=== PATIENT | female | born 1990 | race Caucasian/White ===

== ENCOUNTER 2017-05-09 13:21 | Emergency (ER) | payer OTHER ==
[2017-05-09 13:34] VITALS: RESP 16
[2017-05-09 14:45] LABS: Basophils # (A) 0.1 k/uL (0-0.2); Basophils % (A) 1 %; Eosinophils # (A) 0.2 k/uL (0-0.7); Eosinophils % (A) 2 %; HCT 45.7 % (34.0-46.0); HGB 14.8 gm/dL (11.4-16.0); Lymphocytes # (A) 2.4 k/uL (1.0-4.8); Lymphocytes % (A) 28 %; MCH 28.3 pg (25.0-35.0); MCHC 32.4 g/dL (31.0-37.0); MCV 87.6 fL (80.0-100.0); Mean Platelet Volume 7.6; Monocytes # (A) 0.5 k/uL (0-1.0); Monocytes % (A) 6 %; Neutrophils # (A) 5.1 k/uL (1.3-7.7); Neutrophils % (A) 61 %; Platelet Count 351 k/uL (150-450); RBC 5.22 m/uL (3.80-5.40); RDW 13.4 % (11.5-15.5); WBC 8.5 k/uL (3.8-10.6)
[2017-05-09 14:46] LABS: Appearance,Urine Clear (Clear); Bilirubin,Urine Negative (Negative); Blood,Urine Negative (Negative); Color,Urine Yellow; Glucose,Urine (UA) Negative (Negative); Ketones,Urine Negative (Negative); Leukocyte Esterase,Urine Negative (Negative); Nitrite,Urine Negative (Negative); Protein,Urine Negative (Negative); Specific Gravity,Urine 1.019 (1.001-1.035); Urobilinogen,Urine <2.0 mg/dL (<2.0)
[2017-05-09 14:55] LABS: Anion Gap 10 mmol/L; Blood Urea Nitrogen 12 mg/dL (7-17); Calcium 10.3 mg/dL (8.4-10.2); Carbon Dioxide 26 mmol/L (22-30); Chloride 101 mmol/L (98-107); Glucose 80 mg/dL (74-99); Potassium 4.5 mmol/L (3.5-5.1); Sodium 137 mmol/L (137-145)
[2017-05-09 15:12] LABS: HCG,Quantitative Serum 1402.9 mIU/mL
--- NOTE | 2017-05-09 15:54 | US ---
EXAMINATION TYPE: US OB <= 14 wk fetus DATE OF EXAM: 05/09/2017 COMPARISON: NONE CLINICAL HISTORY: Pain. Bilateral hip pain x 2 days, 5, para 1, miscarriage 3, history of c-s ection and D&C EXAM PERFORMED: Transabdominal (TA) EXAM MEASUREMENTS: GESTATIONAL AGE / DATING Physician Established: Not established yet Dates by LMP: (4 weeks/5 days) EDC: 01/11/2018 Dates by First Scan: This is 1st scan Dates by Current Scan for: No IUP seen at this time MATERNAL ANATOMY Uterus: 9.5 x 5.0 x 5.8cm, anteverted Endometrium: 0.9cm Right Ovary: 2.7 x 1.8 x 1.8cm Left Ovary: 2.5 x 2.0 x 3.2cm, 2.2 x 1.4 x 1.5cm hypoechoic cystic area Post CDS / Adnexa: small amount of free fluid in posterior cul de sac Presence of free fluid: yes Presence of corpus luteal cyst: left ovary: 1.5 x 1.6 x 1.7cm hypoechoic area with peripheral vascula rity, possible corpus luteum Presence of subchorionic bleed: no GESTATION / SURVEY IUP: No IUP seen at this time Date of LMP: 04/06/2018 Beta HcG (if available): Not available at time of exam IMPRESSION: No intrauterine identified at this time. Endometrial canal appears normal 0.8 cm. Correlate for early versus spontaneous . Correlation with beta-hCG can be performed. Ectopic is not excluded this time.
--- NOTE | 2017-05-09 16:09 | ED ---
General Adult HPI - General Chief complaint: Abdominal Pain Stated complaint: early /cramping Time Seen by Provider: 05/09/17 13:39 Source: patient Mode of arrival: ambulatory Limitations: no limitations - History of Present Illness Initial comments: 26-year-old 031 presented for bilateral hip pain. She states that she recently had a positive test and hasn't followed up with her primary care physician or her CHEMICAL TESTER yet. She states that when she started having the pain this is similar to her previous spontaneous miscarriage and concerned her. She denies any vaginal bleeding or discharge or dysuria. There are no other symptoms other than the bilateral hip pain. She believes she is about 8 weeks but has not had confirmation of the at this time. - Related Data Home Medications Medication Instructions Recorded Confirmed No Known Home Medications [No 05/09/17 05/09/17 Known Home Medications] Allergies Allergy/AdvReac Type Severity Reaction Status Date / Time No Known Allergies Allergy Verified 05/09/17 13:51 Review of Systems ROS Statement: Those systems with pertinent positive or pertinent negative responses have been documented in the HPI. ROS Other: All systems not noted in ROS Statement are negative. Constitutional: Denies: fever, chills Eyes: Denies: eye pain, eye discharge ENT: Denies: ear pain, throat pain Respiratory: Denies: cough, dyspnea Cardiovascular: Denies: chest pain, palpitations Endocrine: Denies: fatigue, polydipsia, polyuria Gastrointestinal: Denies: abdominal pain, nausea, vomiting Genitourinary: Denies: urgency, dysuria Musculoskeletal: Reports: arthralgia (Bilateral hip pain). Denies: back pain, myalgia Skin: Denies: rash, lesions Neurological: Denies: headache, weakness Psychiatric: Denies: anxiety, depression Hematological/Lymphatic: Denies: easy bleeding, easy bruising Past Medical History Past Medical History: Asthma Additional Past Medical History / Comment(s): anemia, History of Any Multi-Drug Resistant Organisms: None Reported Past Surgical History: Section, Cholecystectomy Additional Past Surgical History / Comment(s): d&c Past Anesthesia/Blood Transfusion Reactions: No Reported Reaction Past Psychological History: No Psychological Hx Reported Smoking Status: Current every day smoker Past Alcohol Use History: None Reported Past Drug Use History: None Reported - Past Family History Mother Family Medical History: No Reported History General Exam Limitations: no limitations Course Vital Signs 12/28/17 12/28/17 13:30 16:39 Temperature 98.8 F 98.0 F Pulse Rate 100 95 Respiratory 16 16 Rate Blood Pressure 136/83 128/78 O2 Sat by Pulse 100 100 Oximetry Medical Decision Making - Medical Decision Making 26-year-old female 031 with LMP 04/07/2017 presented for evaluation of presumed miscarriage. She states that her miscarriages do not have vaginal bleeding and has previously only presented with pain which she currently has. On physical examination no abnormalities are noted. Labs revealed an elevated beta hCG for the remainder of her labs revealed no significant abnormalities.Pelvic ultrasound showed no intrauterine and the endometrial canal normal at 0.8 centimeters. Given her elevated beta hCG this could either be considered a missed , early IUP, or ectopic. Ectopic could not be ruled out on this ultrasound. All these results were shared with the patient and she was advised to follow-up with her CHEMICAL TESTER next week. She was further advised to return to this facility if her symptoms should worsen or persist. The patient acknowledged an understanding of all information provided and agreed with this plan of care. - Lab Data Result diagrams: 05/09/17 14:30 05/09/17 14:30 Lab Results 05/09/17 05/09/17 05/09/17 Range/Units 14:30 14:30 14:30 WBC 8.5 (3.8-10.6) k/uL RBC 5.22 (3.80-5.40) m/uL Hgb 14.8 (11.4-16.0) gm/dL Hct 45.7 (34.0-46.0) % MCV 87.6 (80.0-100.0) fL MCH 28.3 (25.0-35.0) pg MCHC 32.4 (31.0-37.0) g/dL RDW 13.4 (11.5-15.5) % Plt Count 351 (150-450) k/uL Neutrophils % 61 % Lymphocytes % 28 % Monocytes % 6 % Eosinophils % 2 % Basophils % 1 % Neutrophils # 5.1 (1.3-7.7) k/uL Lymphocytes # 2.4 (1.0-4.8) k/uL Monocytes # 0.5 (0-1.0) k/uL Eosinophils # 0.2 (0-0.7) k/uL Basophils # 0.1 (0-0.2) k/uL Sodium 137 (137-145) mmol/L Potassium 4.5 (3.5-5.1) mmol/L Chloride 101 (98-107) mmol/L Carbon Dioxide 26 (22-30) mmol/L Anion Gap 10 mmol/L BUN 12 (7-17) mg/dL Creatinine 0.56 (0.52-1.04) mg/dL Est GFR (MDRD) Af Amer >60 (>60 ml/min/1.73 sqM) Est GFR (MDRD) Non-Af >60 (>60 ml/min/1.73 sqM) Glucose 80 (74-99) mg/dL Calcium 10.3 H (8.4-10.2) mg/dL HCG, Quant 1402.9 mIU/mL Urine Color Yellow Urine Appearance Clear (Clear) Urine pH 7.0 (5.0-8.0) Ur Specific [place] 1.019 (1.001-1.035) Urine Protein Negative (Negative) Urine Glucose (UA) Negative (Negative) Urine Ketones Negative (Negative) Urine Blood Negative (Negative) Urine Nitrite Negative (Negative) Urine Bilirubin Negative (Negative) Urine Urobilinogen <2.0 (<2.0) mg/dL Ur Leukocyte Esterase Negative (Negative) Disposition Clinical Impression: Hip pain, bilateral Disposition: HOME SELF-CARE Condition: Stable Instructions: Miscarriage (ED), Threatened Miscarriage (ED) Additional Instructions: Please follow up with her CHEMICAL TESTER on Saturday for further evaluation. If he started to have vaginal bleeding, intractable pain, intractable nausea and vomiting, or vaginal discharge please return to the ED immediately. Referrals: None,Stated [Primary Care Provider] - 1-2 days Time of Disposition: 16:13
[2017-05-09 16:41] VITALS: BP 128/78; PULSE 95; TEMP 98
== END 2017-05-09 16:39 | disposition home or self-care (01) ==
LOC: EC 13:21
DX: M25.551 Pain in right hip (principal); M25.552 Pain in left hip; R10.9 Unspecified abdominal pain; F17.200 Nicotine dependence, unspecified, uncomplicated; Z90.49 Acquired absence of other specified parts of digestive tract
CPT/HCPCS: 36415; 76801; 80048; 81003; 84702; 85025; 99284

== ENCOUNTER → 2017-05-15 | Outpatient (CLI) | payer OTHER | END | disposition home or self-care (01) | LOC: LABWHC1 14:54 | PROVIDERS: ATTEND Obstetrics & Gynecology | DX: Z34.80 Encounter for supervision of other normal pregnancy, unspecified trimester (principal) | CPT/HCPCS: 36415; 84702 ==

== ENCOUNTER → 2017-05-28 | Outpatient (CLI) | payer OTHER ==
--- NOTE | 2017-05-28 14:47 | US ---
EXAMINATION TYPE: US OB <=14 wks transvag DATE OF EXAM: 05/28/2017 COMPARISON: US CLINICAL HISTORY: Z36 F/U PREV ABN US. EXAM PERFORMED: Transvaginal (TV) and Transabdominal (TA) EXAM MEASUREMENTS: GESTATIONAL AGE / DATING Physician Established: Not yet established Dates by LMP: (7 weeks/3 days) EDC: 01/11/18 Dates by First Scan: no dates by 1st scan Dates by Current Scan for: No IUP seen at this time MATERNAL ANATOMY Uterus: 9.2 x 5.4 x 6.5cm Right Ovary: 2.3 x 1.5 x 1.6 Left Ovary: 2.6 x 1.9 x 1.9 Post CDS / Adnexa: adjacent to left ovary is a cystic structure with debris within that somewhat rese mbles a pole and yolk sac Presence of free fluid: small amount of ff in cul de sac Presence of corpus luteal cyst: no Presence of subchorionic bleed: no GESTATION / SURVEY IUP: No IUP seen at this time Date of LMP: 04/06/18 Beta HcG (if available): 3371 on 05-15-17 IMPRESSION: I cannot exclude a left sided ectopic . Correlate with clinical findings and beta hCG.
[2017-05-28 17:20] LABS: HCG,Quantitative Serum 10554.4 mIU/mL
== END | disposition home or self-care (01) ==
LOC: RADUSWWP 14:02
PROVIDERS: ATTEND Obstetrics & Gynecology
DX: Z36.2 Encounter for other antenatal screening follow-up (principal); O00.90 Unspecified ectopic pregnancy without intrauterine pregnancy; Z3A.00 Weeks of gestation of pregnancy not specified
CPT/HCPCS: 76801; 76817; 84450; 84460; 84702

== ENCOUNTER → 2017-05-30 | Outpatient (CLI) | payer OTHER ==
[~2017-05-30] MED LIST: METHOTREXATE SODIUM IM ONE
[2017-05-30 11:15] VITALS: BP 116/71; PULSE 89; RESP 16; TEMP 99.1
== END | disposition home or self-care (01) ==
LOC: PROCWHC3 10:52
PROVIDERS: ATTEND Obstetrics & Gynecology
DX: O00.90 Unspecified ectopic pregnancy without intrauterine pregnancy (principal); Z3A.00 Weeks of gestation of pregnancy not specified
CPT/HCPCS: 96402; J9260

== ENCOUNTER 2017-12-17 17:02 | Emergency (ER) | payer MEDICARE, OTHER ==
[2017-12-17] MEDS ORDERED: SODIUM CHLORIDE 0.9% 1,000 ML IV STA (20:05)
--- NOTE | 2017-12-17 20:08 | ED ---
General Adult HPI - General Chief complaint: Vaginal Bleeding Stated complaint: bleeding, Time Seen by Provider: 12/17/17 19:36 Source: patient, RN notes reviewed Mode of arrival: ambulatory Limitations: no limitations - History of Present Illness Initial comments: 27-year-old female presents to the emergency department for a chief complaint of vaginal bleeding 2 days. 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 Patient had an ectopic about 7 months ago. Patient denies any abdominal pain at this time. Patient states she does not know when her last period was because she received chemo shots for her ectopic which affected her periods. Patient states she took an at home test and it was positive. Patient would like to make sure she does not have an ectopic . Patient denies nausea or vomiting. Patient states her last bowel movement was earlier today. Patient denies any pain with urination. Patient has been taking vitamins. Patient has no other complaints at this time including shortness of breath, chest pain, abdominal pain, nausea or vomiting, headache, or visual changes. - Related Data Previous Rx's Medication Instructions Recorded Cephalexin [Keflex] 500 mg PO Q6HR 10 Days cap 12/17/17 Allergies Allergy/AdvReac Type Severity Reaction Status Date / Time No Known Allergies Allergy Verified 12/17/17 17:22 Review of Systems ROS Statement: Those systems with pertinent positive or pertinent negative responses have been documented in the HPI. ROS Other: All systems not noted in ROS Statement are negative. Past Medical History Past Medical History: Asthma Additional Past Medical History / Comment(s): anemia, History of Any Multi-Drug Resistant Organisms: None Reported Past Surgical History: Section, Cholecystectomy Additional Past Surgical History / Comment(s): d&c Past Anesthesia/Blood Transfusion Reactions: No Reported Reaction Past Psychological History: No Psychological Hx Reported Smoking Status: Former smoker Past Alcohol Use History: None Reported Past Drug Use History: None Reported - Past Family History Mother Family Medical History: No Reported History General Exam Limitations: no limitations General appearance: alert, in no apparent distress Head exam: Present: atraumatic, normocephalic, normal inspection Eye exam: Present: normal appearance. Absent: scleral icterus, conjunctival injection ENT exam: Present: normal exam, mucous membranes moist Neck exam: Present: normal inspection, full ROM. Absent: tenderness, meningismus, lymphadenopathy Respiratory exam: Present: normal lung sounds bilaterally. Absent: respiratory distress, wheezes, rales, rhonchi, stridor Cardiovascular Exam: Present: regular rate, normal rhythm, normal heart sounds. Absent: systolic murmur, diastolic murmur, rubs, gallop, clicks GI/Abdominal exam: Present: soft, tenderness (mild RLQ tenderness), normal bowel sounds. Absent: distended, guarding, rebound, rigid, other (negative obturator sign, negative banerjee sign) Speculum exam: Present: other (Patient refused) Back exam: Absent: CVA tenderness (R), CVA tenderness (L) Neurological exam: Present: alert, oriented X3, CN II-XII intact Psychiatric exam: Present: normal affect, normal mood Course Vital Signs 12/17/17 12/17/17 12/17/17 17:20 21:14 22:44 Temperature 98.6 F 99.0 F Pulse Rate 96 75 99 Respiratory 16 18 18 Rate Blood Pressure 116/72 133/77 124/81 O2 Sat by Pulse 96 97 100 Oximetry Medical Decision Making - Medical Decision Making 27-year-old female with history of multiple spontaneous abortions and an ectopic 8 months ago presents to the emergency department for a chief complaint of vaginal bleeding 2 days. Patient states she is but she is not sure how long. Patient denies any pain in the abdomen. On exam patient has some mild right lower quadrant tenderness. Negative obturator or Banerjee sign. No nausea or vomiting. Patient refused pelvic exam. I did discuss the benefits of pelvic exam with the patient but she states she does not feel it is necessary at this time and just wants the results of the ultrasound. Vital stable in the emergency department. CBC and CMP unremarkable. HCG Quant is 10, 660. Patient may have mild urinary tract infection she will be treated with Keflex and urine will be cultured. Blood type is A+. Ultrasound shows no intrauterine seen at this time but there is a hypoechoic area seen on the left anterior uterus measuring 2.6 x 3.5 x 3.3 cm. There is a small left ovary cystic focus seen at 1.9 x 1.3 x 1.8 cm. I did discuss with Dr. Hernandez the ultrasound results. At this time she recommends patient should follow up with her OB and repeat the beta hCG in 2 days[address] Patient does see Dr. Ghotra and the past. Patient will be treated with Keflex and given a prescription for the repeat beta. Patient aware to return to the emergency Department if she has increased pain or any other worsening symptoms. - Lab Data Result diagrams: 12/17/17 21:08 12/17/17 21:08 Lab Results 12/17/17 12/17/17 12/17/17 Range/Units 21:08 21:08 21:08 WBC 7.9 (3.8-10.6) k/uL RBC 4.74 (3.80-5.40) m/uL Hgb 12.1 (11.4-16.0) gm/dL Hct 39.0 (34.0-46.0) % MCV 82.3 (80.0-100.0) fL MCH 25.5 (25.0-35.0) pg MCHC 31.0 (31.0-37.0) g/dL RDW 14.6 (11.5-15.5) % Plt Count 297 (150-450) k/uL Neutrophils % 57 % Lymphocytes % 31 % Monocytes % 6 % Eosinophils % 4 % Basophils % 0 % Neutrophils # 4.5 (1.3-7.7) k/uL Lymphocytes # 2.5 (1.0-4.8) k/uL Monocytes # 0.4 (0-1.0) k/uL Eosinophils # 0.4 (0-0.7) k/uL Basophils # 0.0 (0-0.2) k/uL Hypochromasia Slight Sodium 139 (137-145) mmol/L Potassium 4.4 (3.5-5.1) mmol/L Chloride 106 (98-107) mmol/L Carbon Dioxide 24 (22-30) mmol/L Anion Gap 9 mmol/L BUN 10 (7-17) mg/dL Creatinine 0.53 (0.52-1.04) mg/dL Est GFR (CKD-EPI)AfAm >90 (>60 ml/min/1.73 sqM) Est GFR (CKD-EPI)NonAf >90 (>60 ml/min/1.73 sqM) Glucose 86 (74-99) mg/dL Calcium 9.5 (8.4-10.2) mg/dL Total Bilirubin 1.0 (0.2-1.3) mg/dL AST 21 (14-36) U/L ALT 19 (9-52) U/L Alkaline Phosphatase 63 (38-126) U/L Total Protein 7.1 (6.3-8.2) g/dL Albumin 4.4 (3.5-5.0) g/dL Amylase 53 (30-110) U/L Lipase 125 (23-300) U/L HCG, Quant 57034.6 mIU/mL Urine Color Urine Appearance (Clear) Urine pH (5.0-8.0) Ur Specific [place] (1.001-1.035) Urine Protein (Negative) Urine Glucose (UA) (Negative) Urine Ketones (Negative) Urine Blood (Negative) Urine Nitrite (Negative) Urine Bilirubin (Negative) Urine Urobilinogen (<2.0) mg/dL Ur Leukocyte Esterase (Negative) Urine RBC (0-5) /hpf Urine WBC (0-5) /hpf Urine WBC Clumps (None) /hpf Ur Squamous Epith Cells (0-4) /hpf Urine HCG, Qual (Not Detectd) Blood Type A Positive Blood Type Recheck No 12/17/17 12/17/17 Range/Units 21:15 21:15 WBC (3.8-10.6) k/uL RBC (3.80-5.40) m/uL Hgb (11.4-16.0) gm/dL Hct (34.0-46.0) % MCV (80.0-100.0) fL MCH (25.0-35.0) pg MCHC (31.0-37.0) g/dL RDW (11.5-15.5) % Plt Count (150-450) k/uL Neutrophils % % Lymphocytes % % Monocytes % % Eosinophils % % Basophils % % Neutrophils # (1.3-7.7) k/uL Lymphocytes # (1.0-4.8) k/uL Monocytes # (0-1.0) k/uL Eosinophils # (0-0.7) k/uL Basophils # (0-0.2) k/uL Hypochromasia Sodium (137-145) mmol/L Potassium (3.5-5.1) mmol/L Chloride (98-107) mmol/L Carbon Dioxide (22-30) mmol/L Anion Gap mmol/L BUN (7-17) mg/dL Creatinine (0.52-1.04) mg/dL Est GFR (CKD-EPI)AfAm (>60 ml/min/1.73 sqM) Est GFR (CKD-EPI)NonAf (>60 ml/min/1.73 sqM) Glucose (74-99) mg/dL Calcium (8.4-10.2) mg/dL Total Bilirubin (0.2-1.3) mg/dL AST (14-36) U/L ALT (9-52) U/L Alkaline Phosphatase (38-126) U/L Total Protein (6.3-8.2) g/dL Albumin (3.5-5.0) g/dL Amylase (30-110) U/L Lipase (23-300) U/L HCG, Quant mIU/mL Urine Color Yellow Urine Appearance Cloudy H (Clear) Urine pH 6.0 (5.0-8.0) Ur Specific [place] 1.017 (1.001-1.035) Urine Protein Negative (Negative) Urine Glucose (UA) Negative (Negative) Urine Ketones Negative (Negative) Urine Blood Moderate H (Negative) Urine Nitrite Negative (Negative) Urine Bilirubin Negative (Negative) Urine Urobilinogen <2.0 (<2.0) mg/dL Ur Leukocyte Esterase Moderate H (Negative) Urine RBC 1 (0-5) /hpf Urine WBC 19 H (0-5) /hpf Urine WBC Clumps Occasional H (None) /hpf Ur Squamous Epith Cells 9 H (0-4) /hpf Urine HCG, Qual Detected (Not Detectd) Blood Type Blood Type Recheck Disposition Clinical Impression: Threatened , Vaginal bleeding during Disposition: HOME SELF-CARE Condition: Good Instructions: Threatened Miscarriage (ED) Additional Instructions: Please repeat beta hCG and 2 days to make sure there is no ectopic . Please follow-up with OB tomorrow. Return to the emergency room if you have any worsening symptoms including increased pain or any other concerns. Prescriptions: Cephalexin [Keflex] 500 mg PO Q6HR 10 Days cap Is patient prescribed a controlled substance at d/c from ED?: No Referrals: Tatianna Ghotra DO [Doctor of Osteopathic Medicine] - 1-2 days Time of Disposition: 23:28
[2017-12-17 21:15] VITALS: RESP 18
[2017-12-17 21:23] LABS: Basophils % (A) 0 %; Eosinophils # (A) 0.4 k/uL (0-0.7); Eosinophils % (A) 4 %; HGB 12.1 gm/dL (11.4-16.0); Hypochromasia Slight; Lymphocytes # (A) 2.5 k/uL (1.0-4.8); Lymphocytes % (A) 31 %; MCH 25.5 pg (25.0-35.0); MCV 82.3 fL (80.0-100.0); Mean Platelet Volume 8.2; Monocytes # (A) 0.4 k/uL (0-1.0); Monocytes % (A) 6 %; Neutrophils # (A) 4.5 k/uL (1.3-7.7); Neutrophils % (A) 57 %; Platelet Count 297 k/uL (150-450); RBC 4.74 m/uL (3.80-5.40); RDW 14.6 % (11.5-15.5); WBC 7.9 k/uL (3.8-10.6)
[2017-12-17 21:34] LABS: ALT 19 U/L (9-52); AST 21 U/L (14-36); Albumin 4.4 g/dL (3.5-5.0); Alkaline Phosphatase 63 U/L (38-126); Amylase 53 U/L (30-110); Anion Gap 9 mmol/L; Blood Urea Nitrogen 10 mg/dL (7-17); Calcium 9.5 mg/dL (8.4-10.2); Carbon Dioxide 24 mmol/L (22-30); Chloride 106 mmol/L (98-107); Glucose 86 mg/dL (74-99); Lipase 125 U/L (23-300); Potassium 4.4 mmol/L (3.5-5.1); Sodium 139 mmol/L (137-145); Total Protein 7.1 g/dL (6.3-8.2)
[2017-12-17 21:44] LABS: Appearance,Urine Cloudy (Clear); Bilirubin,Urine Negative (Negative); Blood,Urine Moderate (Negative); Color,Urine Yellow; Glucose,Urine (UA) Negative (Negative); Ketones,Urine Negative (Negative); Leukocyte Esterase,Urine Moderate (Negative); Nitrite,Urine Negative (Negative); Protein,Urine Negative (Negative); RBC,Urine 1 /hpf (0-5); Specific Gravity,Urine 1.017 (1.001-1.035); Squamous Epithelial Cell,Urine 9 /hpf (0-4); Urobilinogen,Urine <2.0 mg/dL (<2.0); WBC,Urine 19 /hpf (0-5)
[2017-12-17 21:50] LABS: HCG,Quantitative Serum 10660.6 mIU/mL
--- NOTE | 2017-12-17 22:04 | US ---
EXAMINATION TYPE: Transabdominal DATE OF EXAM: 08/13/17 COMPARISON: NONE CLINICAL HISTORY: Pain. Bleeding hx of tubal 8 months ago. EXAM PERFORMED: Transabdominal (TA) EXAM MEASUREMENTS: GESTATIONAL AGE / DATING Physician Established: Not yet established Dates by LMP: LMP unknown Dates by First Scan: No previous this is first scan Dates by Current Scan for: No IUP seen at this time MATERNAL ANATOMY Uterus: 9.3 x 4.4 x 5.3 cm Hypoechoic area seen left anterior uterus measuring 2.6 x 3.5 x 3.3 cm wit h color flow. Right Ovary: 2.9 x 1.9 x 2.3 cm Left Ovary: 2.6 x 2.2 x 2.9 cm. Cystic focus seen 1.9 x 1.3 x 1.8cm. Post CDS / Adnexa: wnl Presence of free fluid: No Presence of corpus luteal cyst: Left GESTATION / SURVEY IUP: No IUP seen at this time Beta HcG (if available): Not available at this time IMPRESSION: NO IUP SEEN AT THIS TIME.
[2017-12-17 22:45] VITALS: BP 124/81; PULSE 99; TEMP 99
== END 2017-12-17 23:47 | disposition home or self-care (01) ==
LOC: EC 17:02
DX: O20.0 Threatened abortion (principal); Z87.891 Personal history of nicotine dependence; Z3A.00 Weeks of gestation of pregnancy not specified; Z53.29 Procedure and treatment not carried out because of patient's decision for other reasons
CPT/HCPCS: 36415; 76801; 80053; 81001; 81025; 82150; 83690; 84702; 85025; 86900; 86901; 87077; 87086; 87186; 96360; 99284

== ENCOUNTER → 2017-12-20 | Outpatient (CLI) | payer MEDICARE, OTHER | END | disposition home or self-care (01) | LOC: LABWHC1 14:15 | PROVIDERS: ATTEND Obstetrics & Gynecology | DX: O20.0 Threatened abortion (principal); Z3A.00 Weeks of gestation of pregnancy not specified | CPT/HCPCS: 36415; 84702 ==

== ENCOUNTER → 2017-12-24 | Outpatient (CLI) | payer MEDICARE, OTHER | END | disposition home or self-care (01) | LOC: LABWHC1 14:11 | PROVIDERS: ATTEND Obstetrics & Gynecology | DX: Z34.80 Encounter for supervision of other normal pregnancy, unspecified trimester (principal); Z3A.00 Weeks of gestation of pregnancy not specified | CPT/HCPCS: 36415; 84702 ==

== ENCOUNTER 2017-12-26 10:55 | Outpatient (CLI) | payer MEDICARE, OTHER ==
[2017-12-26] MEDS ORDERED: METHOTREXATE SODIUM (PF) 25 MG/ML 2 ML VIAL IM NR (11:15)
[2017-12-26 11:45] VITALS: BP 125/76; PULSE 71; RESP 15; TEMP 98.4
== END 2017-12-26 14:19 | disposition home or self-care (01) ==
LOC: PROCWHC3 10:55
PROVIDERS: ATTEND Obstetrics & Gynecology
DX: O00.90 Unspecified ectopic pregnancy without intrauterine pregnancy (principal); Z3A.00 Weeks of gestation of pregnancy not specified
CPT/HCPCS: 96372; J9260

== ENCOUNTER → 2018-01-01 | Outpatient (CLI) | payer MEDICARE, OTHER | END | disposition home or self-care (01) | LOC: LABWHC1 14:52 | PROVIDERS: ATTEND Obstetrics & Gynecology | DX: O00.90 Unspecified ectopic pregnancy without intrauterine pregnancy (principal); Z3A.00 Weeks of gestation of pregnancy not specified | CPT/HCPCS: 36415; 84702 ==

== ENCOUNTER 2018-06-10 01:56 | Emergency (ER) | payer MEDICARE, OTHER ==
[2018-06-10 02:04] VITALS: TEMP 97.8
--- NOTE | 2018-06-10 02:15 | ED ---
Female Urogenital HPI - General Chief complaint: Urogenital Stated complaint: Poss ectopic Time Seen by Provider: 06/10/18 02:14 Source: patient Mode of arrival: ambulatory Limitations: no limitations - History of Present Illness Initial comments: Dalila is a female with an extensive history of recurrent miscarriages and 2 ectopic pregnancies in the past both of which were treated with methotrexate injections. Patient presents to the emergency department today with stabbing pelvic pain and dark vaginal bleeding which is similar to previous ectopic . Patient reports that she has had continuous vaginal bleeding since her previous ectopic which was treated with methotrexate. She has discussed this with her window shade ring coverer who advised her that irregular bleeding after an ectopic is expected. Patient is uncertain of her gestation, she states that last week she began to suspect she was , she had a positive test yesterday. - Related Data Allergies Allergy/AdvReac Type Severity Reaction Status Date / Time No Known Allergies Allergy Verified 06/10/18 02:04 Review of Systems ROS Statement: Those systems with pertinent positive or pertinent negative responses have been documented in the HPI. ROS Other: All systems not noted in ROS Statement are negative. Past Medical History Past Medical History: Asthma Additional Past Medical History / Comment(s): anemia, ectopic . History of Any Multi-Drug Resistant Organisms: None Reported Past Surgical History: Section, Cholecystectomy Additional Past Surgical History / Comment(s): d&c Past Anesthesia/Blood Transfusion Reactions: No Reported Reaction Past Psychological History: No Psychological Hx Reported Smoking Status: Former smoker - Past Family History Mother Family Medical History: No Reported History General Exam - General Exam Comments Initial Comments: Physical Exam GENERAL: Patient is well-developed and well-nourished. Patient is nontoxic and well- hydrated and is in no distress. HENT: Normocephalic, Atraumatic. EYES: PERRL, EOMI PULMONARY: Unlabored respirations. No audible rales rhonchi or wheezing was noted. CARDIOVASCULAR: There is a regular rate and rhythm without any murmurs gallops or rubs. ABDOMEN: Soft and nontender with normal bowel sounds. Bedside US reveals no definitive structure in uterus, concern for atypical structure in LEFT adenexa on bedside US SKIN: Skin is clear with no lesions or rashes and otherwise unremarkable. : Deferred NEUROLOGIC: Patient is alert and oriented x3. Moving all extremities spontaneously MUSCULOSKELETAL: Normal extremities with adequate strength and full range of motion. No lower extremity swelling or edema. No calf tenderness. PSYCHIATRIC: Normal psychiatric evaluation. Limitations: no limitations Limitations: no limitations Course Vital Signs 06/10/18 06/10/18 01:59 04:37 Temperature 97.8 F Pulse Rate 120 H 97 Respiratory 16 20 Rate Blood Pressure 157/83 111/57 O2 Sat by Pulse 98 99 Oximetry Medical Decision Making - Medical Decision Making Patient seen and evaluated, Patient tachycardic with normal BP Bedside US with no free fluid in abd/pelvis - there is an atypical structure, we 'll proceed with formal ultrasound Labs and formal US ordered Labs reveal a beta-hCG of greater than 225,000 Ultrasound is concerning for molar Patient care was discussed with Dr. Aviles, based on patient's hemoglobin of vital signs he states the patient is stable for discharge home he should be seen by Dr. Ghotra at 9 AM on morning. Return parameters including any worsening bleeding or new or concerning symptoms were discussed with patient. Patient agreeable to plan for discharge home. - Lab Data Result diagrams: 06/10/18 02:47 06/10/18 02:47 Lab Results 06/10/18 06/10/18 06/10/18 Range/Units 02:47 02:47 02:47 WBC 12.3 H (3.8-10.6) k/uL RBC 4.87 (3.80-5.40) m/uL Hgb 12.3 (11.4-16.0) gm/dL Hct 38.8 (34.0-46.0) % MCV 79.7 L (80.0-100.0) fL MCH 25.2 (25.0-35.0) pg MCHC 31.6 (31.0-37.0) g/dL RDW 15.1 (11.5-15.5) % Plt Count 310 (150-450) k/uL Neutrophils % 82 % Lymphocytes % 11 % Monocytes % 4 % Eosinophils % 2 % Basophils % 0 % Neutrophils # 10.0 H (1.3-7.7) k/uL Lymphocytes # 1.3 (1.0-4.8) k/uL Monocytes # 0.5 (0-1.0) k/uL Eosinophils # 0.3 (0-0.7) k/uL Basophils # 0.0 (0-0.2) k/uL Sodium 139 (137-145) mmol/L Potassium 4.3 (3.5-5.1) mmol/L Chloride 103 (98-107) mmol/L Carbon Dioxide 25 (22-30) mmol/L Anion Gap 11 mmol/L BUN 12 (7-17) mg/dL Creatinine 0.46 L (0.52-1.04) mg/dL Est GFR (CKD-EPI)AfAm >90 (>60 ml/min/1.73 sqM) Est GFR (CKD-EPI)NonAf >90 (>60 ml/min/1.73 sqM) Glucose 95 (74-99) mg/dL Calcium 9.9 (8.4-10.2) mg/dL Total Bilirubin 1.4 H (0.2-1.3) mg/dL AST 26 (14-36) U/L ALT 32 (9-52) U/L Alkaline Phosphatase 81 (38-126) U/L Total Creatine Kinase 46 (30-135) U/L CK-MB (CK-2) <0.2 (0.0-2.4) ng/mL CK-MB (CK-2) Rel Index Troponin I <0.012 (0.000-0.034) ng/mL Total Protein 7.6 (6.3-8.2) g/dL Albumin 4.5 (3.5-5.0) g/dL HCG, Quant >075264.0 mIU/mL Urine Color Urine Appearance (Clear) Urine pH (5.0-8.0) Ur Specific [place] (1.001-1.035) Urine Protein (Negative) Urine Glucose (UA) (Negative) Urine Blood (Negative) Urine Nitrite (Negative) Urine Bilirubin (Negative) Urine Urobilinogen (<2.0) mg/dL Ur Leukocyte Esterase (Negative) Urine RBC (0-5) /hpf Ur Squamous Epith Cells (0-4) /hpf Urine Bacteria (None) /hpf Urine Mucus (None) /hpf Blood Type Blood Type Recheck Antibody Screen Spec Expiration Date 06/10/18 06/10/18 Range/Units 02:47 04:30 WBC (3.8-10.6) k/uL RBC (3.80-5.40) m/uL Hgb (11.4-16.0) gm/dL Hct (34.0-46.0) % MCV (80.0-100.0) fL MCH (25.0-35.0) pg MCHC (31.0-37.0) g/dL RDW (11.5-15.5) % Plt Count (150-450) k/uL Neutrophils % % Lymphocytes % % Monocytes % % Eosinophils % % Basophils % % Neutrophils # (1.3-7.7) k/uL Lymphocytes # (1.0-4.8) k/uL Monocytes # (0-1.0) k/uL Eosinophils # (0-0.7) k/uL Basophils # (0-0.2) k/uL Sodium (137-145) mmol/L Potassium (3.5-5.1) mmol/L Chloride (98-107) mmol/L Carbon Dioxide (22-30) mmol/L Anion Gap mmol/L BUN (7-17) mg/dL Creatinine (0.52-1.04) mg/dL Est GFR (CKD-EPI)AfAm (>60 ml/min/1.73 sqM) Est GFR (CKD-EPI)NonAf (>60 ml/min/1.73 sqM) Glucose (74-99) mg/dL Calcium (8.4-10.2) mg/dL Total Bilirubin (0.2-1.3) mg/dL AST (14-36) U/L ALT (9-52) U/L Alkaline Phosphatase (38-126) U/L Total Creatine Kinase (30-135) U/L CK-MB (CK-2) (0.0-2.4) ng/mL CK-MB (CK-2) Rel Index Troponin I (0.000-0.034) ng/mL Total Protein (6.3-8.2) g/dL Albumin (3.5-5.0) g/dL HCG, Quant mIU/mL Urine Color Light Red Urine Appearance Cloudy H (Clear) Urine pH 6.0 (5.0-8.0) Ur Specific [place] 1.024 (1.001-1.035) Urine Protein 1+ H (Negative) Urine Glucose (UA) Negative (Negative) Urine Blood Large H (Negative) Urine Nitrite Negative (Negative) Urine Bilirubin Negative (Negative) Urine Urobilinogen <2.0 (<2.0) mg/dL Ur Leukocyte Esterase Large H (Negative) Urine RBC >182 H (0-5) /hpf Ur Squamous Epith Cells 12 H (0-4) /hpf Urine Bacteria Occasional H (None) /hpf Urine Mucus Occasional H (None) /hpf Blood Type A Positive Blood Type Recheck No Antibody Screen NEGATIVE Spec Expiration Date 06/13/2018 - 2347 Disposition Clinical Impression: Molar Disposition: HOME SELF-CARE Instructions (If sedation given, give patient instructions): Complete Hydatidiform Mole (ED) Is patient prescribed a controlled substance at d/c from ED?: No Referrals: Tatianna Ghotra DO [Doctor of Osteopathic Medicine] - 1-2 days None,Stated [Primary Care Provider] - 1-2 days Govind Abreu MD [STAFF PHYSICIAN] - 1-2 days
[2018-06-10] MEDS ORDERED: SODIUM CHLORIDE 0.9% 1,000 ML IV STA (02:17)
[2018-06-10 03:15] LABS: Basophils % (A) 0 %; Eosinophils # (A) 0.3 k/uL (0-0.7); Eosinophils % (A) 2 %; HCT 38.8 % (34.0-46.0); HGB 12.3 gm/dL (11.4-16.0); Lymphocytes # (A) 1.3 k/uL (1.0-4.8); Lymphocytes % (A) 11 %; MCH 25.2 pg (25.0-35.0); MCHC 31.6 g/dL (31.0-37.0); MCV 79.7 fL (80.0-100.0); Monocytes # (A) 0.5 k/uL (0-1.0); Monocytes % (A) 4 %; Neutrophils % (A) 82 %; Platelet Count 310 k/uL (150-450); RBC 4.87 m/uL (3.80-5.40); RDW 15.1 % (11.5-15.5); WBC 12.3 k/uL (3.8-10.6)
[2018-06-10 03:24] LABS: ALT 32 U/L (9-52); AST 26 U/L (14-36); Albumin 4.5 g/dL (3.5-5.0); Alkaline Phosphatase 81 U/L (38-126); Anion Gap 11 mmol/L; Blood Urea Nitrogen 12 mg/dL (7-17); Calcium 9.9 mg/dL (8.4-10.2); Carbon Dioxide 25 mmol/L (22-30); Chloride 103 mmol/L (98-107); Glucose 95 mg/dL (74-99); Potassium 4.3 mmol/L (3.5-5.1); Sodium 139 mmol/L (137-145); Total Bilirubin 1.4 mg/dL (0.2-1.3); Total Protein 7.6 g/dL (6.3-8.2)
[2018-06-10 03:37] LABS: Creatine Kinase 46 U/L (30-135)
[2018-06-10 03:50] LABS: Creatine Kinase MB <0.2 ng/mL (0.0-2.4); Troponin I <0.012 ng/mL (0.000-0.034)
[2018-06-10 04:38] VITALS: BP 111/57; PULSE 97; RESP 20
[2018-06-10 04:52] LABS: HCG,Quantitative Serum >225000.0 mIU/mL
--- NOTE | 2018-06-10 05:01 | US ---
EXAMINATION TYPE: Transabdominal DATE OF EXAM: 08/13/17 COMPARISON: NONE CLINICAL HISTORY: Pain concern for ectopic. Pain and bleeding. EXAM PERFORMED: Transabdominal (TA) EXAM MEASUREMENTS: GESTATIONAL AGE / DATING Physician Established: Not yet established LMP Unknown Dates by First Scan: No previous this is first scan Dates by Current Scan for: No IUP seen at this time MATERNAL ANATOMY Uterus: 8.0 x 8.1 x 6.3cm Right Ovary: 2.6 x 1.6 x 1.5cm Left Ovary: 3.2 x 2.1 x 2.0cm Post CDS / Adnexa: wnl Presence of free fluid: no Presence of corpus luteal cyst: no Presence of subchorionic bleed: no GESTATION / SURVEY IUP: No IUP seen. Beta HcG (if available): Not available at this time Large complex area in uterus 7.4 x 5.3 x 5.7cm appears to be possible molar . IMPRESSION: Portal marginated intrauterine predominantly solid mass could be a molar .
[2018-06-10 05:02] LABS: Appearance,Urine Cloudy (Clear); Bacteria,Urine Occasional /hpf; Bilirubin,Urine Negative (Negative); Blood,Urine Large (Negative); Color,Urine Light Red; Glucose,Urine (UA) Negative (Negative); Ketones,Urine 2+ (Negative); Leukocyte Esterase,Urine Large (Negative); Mucus,Urine Occasional /hpf; Nitrite,Urine Negative (Negative); Protein,Urine 1+ (Negative); RBC,Urine >182 /hpf (0-5); Specific Gravity,Urine 1.024 (1.001-1.035); Squamous Epithelial Cell,Urine 12 /hpf (0-4); Urobilinogen,Urine <2.0 mg/dL (<2.0)
== END 2018-06-10 05:57 | disposition home or self-care (01) ==
LOC: EC 01:56
DX: O02.0 Blighted ovum and nonhydatidiform mole (principal); Z87.891 Personal history of nicotine dependence
CPT/HCPCS: 36415; 76801; 80053; 81001; 82550; 82553; 84484; 84702; 85025; 86850; 86900; 86901; 87086; 96360; 99284

== ENCOUNTER → 2023-07-30 | Outpatient (CLI) | payer OTHER ==
[2023-07-31 00:08] VITALS: BP 145/81; PULSE 112; RESP 16; TEMP 97.2
--- NOTE | 2023-09-02 10:25 | P.MSEPDOC ---
Presenting Problems - Arrival Data Date of Arrival on Unit: 07/30/23 Time of Arrival on Unit: 22:50 Mode of Transport: Ambulatory - Complaint OB-Reason for Admission/Chief Complaint: Decreased Movement Medical History - Information : 8 Para: 1 Term: 1 : 0 Abortions: Spontaneous or Elective: 6 Number of Living Children: 1 - Gestational Age Gestational Age by BRODY (wks/days): 31 Weeks and 2 Days - History Complications: Other Comment: pt sees high risk for hx of 6 miscarriages Review of Systems - Review of Systems Constitutional: No problems Breast: No problems ENT: No problems Cardiovascular: No problems Respiratory: No problems Gastrointestinal: No problems Genitourinary: No problems Musculoskeletal: No problems Neurological: No problems Skin: No problems Vital Signs - Temperature Temperature: 97.2 F Temperature Source: Temporal Artery Scan - Pulse Pulse Oximetery Pulse Rate: 112 Pulse Assessment Method: Pulse Oximetry - Respirations Respiratory Rate: 16 O2 Sat by Pulse Oximetry: 98 - Blood Pressure Right Arm Blood Pressure: 145/81 Blood Pressure Mean: 102 Blood Pressure Source: Automatic Cuff Medical Screen Scoring - Cervical Exam Membranes: Intact - Uterine Contractions Intensity: Absent Resting: Soft to palpation - Assessment - Baby A Baseline FHR: 140 Heart Rate - NICHD Category: Category I (Normal) NST: Reactive Physician Notification - Physician Notified Physician Notified Date: 07/30/23 Physician Notified Time: 23:17 Physician: Hellen Tavares New Order Received: Yes - Notification Comment Comment: Dr. Tavares called at home. Reported on Pt c/o decreased movement, pt stating has not felt movement all day. Pt sees high risk for hx of 6 previous miscarriages, G/P, GA, VS, CAT 1 FHT, reactive NST. Orders to discharge home, instruct pt to keep scheduled appointment Maternal Triage Index - Maternal Triage Index Presenting for scheduled procedure w/no complaint: No - Stat/Priority 1 Stat Priority 1: No - Urgent/Priority 2 Urgent Priority 2: Yes Provider Notified: Hellen Tavares Provider Notified Time: 23:17 Criteria Met for Priority 2: C/O decreased movment, pt states has not felt baby move since last night Disposition - Disposition OB Disposition: Discharge to home Discharge Date: 07/30/23 Discharge Time: 23:20 I agree with the RN Medical Screening Exam: Yes Physician's MSE Comment: I have neither seen nor examined the patien Case reviewed; plan agreed upon as documented in EMR&OBIX.: Yes Diagnosis: MATERNAL CARE FOR PROBLEM, UNSP, THIRD * DO NOT USE *
== END ==
LOC: FBPOP 22:50
PROVIDERS: ATTEND Obstetrics & Gynecology
DX: O36.8131 Decreased fetal movements, third trimester, fetus 1 (principal); Z3A.31 31 weeks gestation of pregnancy; Z87.891 Personal history of nicotine dependence
CPT/HCPCS: 59025; G0463; 99213

== ENCOUNTER 2023-09-10 01:16 | Outpatient (CLI) | payer OTHER ==
[2023-09-10] MEDS: LACTATED RINGERS 1,000 ML IV ONE (04:11)
--- NOTE | 2023-09-10 04:16 | US ---
EXAM: US Duplex Bilateral Lower Extremities Veins CLINICAL HISTORY: ITS.REASON US Reason: Right lower extremity swelling TECHNIQUE: Real-time duplex ultrasound scan of the bilateral lower extremity veins integrating B-mode two-dimensional vascular structure, Doppler spectral analysis, color flow Doppler imaging and compression. COMPARISON: No relevant prior studies available. FINDINGS: Right deep veins: Unremarkable. No DVT in the right common femoral, femoral, proximal deep femoral or popliteal veins. The veins demonstrate normal color flow, are normally compressible, with normal phasic flow and/or augmentation response. Right superficial veins: Unremarkable. No thrombus in the visualized right great saphenous vein. Left deep veins: Unremarkable. No DVT in the left common femoral, femoral, proximal deep femoral or popliteal veins. The veins demonstrate normal color flow, are normally compressible, with normal phasic flow and/or augmentation response. Left superficial veins: Unremarkable. No thrombus in the visualized left great saphenous vein. Soft tissues: No acute findings. No popliteal cyst. IMPRESSION: Normal bilateral lower extremity duplex venous ultrasound.
[2023-09-10 06:30] VITALS: BP 145/81; PULSE 112; RESP 16; TEMP 97.2
--- NOTE | 2023-09-14 18:21 | P.MSEPDOC ---
Presenting Problems - Arrival Data Date of Arrival on Unit: 09/10/23 Time of Arrival on Unit: 01:16 Mode of Transport: Portable - Complaint OB-Reason for Admission/Chief Complaint: Other Comment: swelling in right leg/foot Medical History - Information : 8 Para: 1 Term: 1 : 0 Abortions: Spontaneous or Elective: 6 Number of Living Children: 1 - Gestational Age Gestational Age by BRODY (wks/days): 37 Weeks and 2 Days - History Complications: Prior Review of Systems - Review of Systems Constitutional: No problems Breast: No problems ENT: No problems Cardiovascular: No problems Respiratory: No problems Gastrointestinal: No problems Genitourinary: No problems Musculoskeletal: No problems Neurological: No problems Skin: No problems Vital Signs - Temperature Temperature: 97.2 F Temperature Source: Oral - Pulse Right Brachial Pulse Rate: 112 Pulse Assessment Method: Automatic Cuff - Respirations Respiratory Rate: 16 Oxygen Delivery Method: Room Air O2 Sat by Pulse Oximetry: 98 - Blood Pressure Right Arm Blood Pressure: 145/81 Blood Pressure Mean: 102 Blood Pressure Source: Automatic Cuff Medical Screen Scoring - Cervical Exam Membranes: Intact - Uterine Contractions Frequency From (mins): 3 Frequency To (mins): 9 Duration From (seconds): 50 Duration To (seconds): 65 Intensity: Mild Resting: Soft to palpation - Assessment - Baby A Baseline FHR: 120 Heart Rate - NICHD Category: Category I (Normal) NST: Reactive Physician Notification - Physician Notified Physician Notified Date: 09/10/23 Physician Notified Time: 01:34 Physician: Hellen Tavares New Order Received: Yes - Notification Comment Comment: 0134- Dr. Tavares called with report on patient who presents for non painful selling in right leg, history reviewed. Orders received for u/s venous doppler of bilateral lower extremities. 0416- Dr. Tavares called with update on ultrasound negative for DVT. Category 1 heart tones. Patient kimberly on the monitor q 3-9mins, patient reports that she is not feeling them. Patient to have cervical exam, if closed may be discharged and follow up with primary OB. Maternal Triage Index - Maternal Triage Index Presenting for scheduled procedure w/no complaint: No - Stat/Priority 1 Stat Priority 1: No - Urgent/Priority 2 Urgent Priority 2: No - Prompt/Priority 3 Prompt Priority 3: No - Non-Urgent/Priority 4 Non-Urgent Priority 4: Yes Criteria Met for Priority 4: swelling in right leg Disposition - Disposition OB Disposition: Discharge to home Discharge Date: 09/10/23 Discharge Time: 04:38 I agree with the RN Medical Screening Exam: Yes Physician's MSE Comment: I have neither seen nor examined the patient Case reviewed; plan agreed upon as documented in EMR&OBIX.: Yes Diagnosis: MATERNAL CARE FOR PROBLEM, UNSP, THIRD * DO NOT USE *
== END 2023-09-10 04:38 ==
LOC: FBPOP 01:16
PROVIDERS: ATTEND Obstetrics & Gynecology
DX: O99.891 Other specified diseases and conditions complicating pregnancy (principal); M79.89 Other specified soft tissue disorders; Z3A.37 37 weeks gestation of pregnancy; Z87.891 Personal history of nicotine dependence
CPT/HCPCS: 59025; 93970; G0463; 96360; 99213; 99214

== ENCOUNTER 2024-11-01 07:45 | Emergency (ER) | payer OTHER ==
--- NOTE | 2024-11-01 08:32 | XR ---
KUB. CLINICAL INDICATION: Female, 34 years old with history of Abdominal pain, Abdominal pain. COMPARISON: None. TECHNIQUE: 2 upright views of the abdomen were obtained. FINDINGS: The lung bases are clear. There is no free intraperitoneal air beneath the diaphragm. The bowel gas pattern is nonspecific and there is no evidence of obstruction. No suspicious abdominal or pelvic calcifications are seen. The osseous structures are intact. Clips in the right upper quadrant the eighth prior cholecystectomy. IMPRESSION: Nonspecific abdomen without evidence of free air or obstruction. [facility], , 11/01/2024 8:30 AM
--- NOTE | 2024-11-01 09:49 | ED ---
General Adult HPI - General Chief complaint: Abdominal Pain Stated complaint: Vomiting,Constipation Time Seen by Provider: 11/01/24 07:55 Source: patient, RN notes reviewed, old records reviewed Mode of arrival: ambulatory - History of Present Illness Initial comments: This is a 34-year-old female who presents to the emergency department complaining that she is constipated she has not gone for 6 days. Patient states she has some pressure in the lower abdomen. Patient states this has been going on and off ever since she had a baby a year ago. Patient has a history of havi ng choriocarcinoma 5 years ago. Patient is concerned that maybe the cancer is coming back. Patient states she is try to follow-up with OB but she cannot get into an office. Patient states she has been able to eat and drink. - Related Data Home Medications Medication Instructions Recorded Confirmed Vit No.179/Iron/Folic 1 tab PO DAILY 07/30/23 09/10/23 [ Tablet] ursodioL [Ursodiol] 1 tab PO BID 07/30/23 09/10/23 Allergies Allergy/AdvReac Type Severity Reaction Status Date / Time No Known Allergies Allergy Verified 11/01/24 07:52 Review of Systems ROS Statement: Those systems with pertinent positive or pertinent negative responses have been documented in the HPI. ROS Other: All systems not noted in ROS Statement are negative. Past Medical History Past Medical History: Asthma, Cancer Additional Past Medical History / Comment(s): anemia, ectopic . Stage 4 choriocarsinoma History of Any Multi-Drug Resistant Organisms: None Reported Past Surgical History: Section, Cholecystectomy Additional Past Surgical History / Comment(s): d&c Past Anesthesia/Blood Transfusion Reactions: No Reported Reaction Past Psychological History: No Psychological Hx Reported Smoking Status: Former smoker Past Alcohol Use History: None Reported Past Drug Use History: Marijuana - Past Family History Mother Family Medical History: No Reported History General Exam - General Exam Comments Initial Comments: GENERAL: Patient is well-developed and well-nourished. Patient is nontoxic and well- hydrated and is in no acute distress. ENT: Neck is soft and supple. No significant lymphadenopathy is noted. Oropharynx is clear. Moist mucous membranes. Neck has full range of motion without eliciting any pain. EYES: The sclera were anicteric and conjunctiva were pink and moist. Extraocular movements were intact and pupils were equal round and reactive to light. Eyelids were unremarkable. ABDOMEN: Soft and nontender with normal bowel sounds. SKIN: Skin is clear with no lesions or rashes and otherwise unremarkable. NEUROLOGIC: Patient is alert and oriented x3. Cranial nerves II through XII are grossly intact. Motor and sensory are also intact. Normal speech, volume and content. Symmetrical smile. MUSCULOSKELETAL: Normal extremities with adequate strength and full range of motion. LYMPHATICS: No significant lymphadenopathy is noted PSYCHIATRIC: Normal psychiatric evaluation. Course Vital Signs 11/01/24 07:48 Temperature 98.0 F Pulse Rate 99 Respiratory 16 Rate Blood Pressure 126/71 O2 Sat by Pulse 98 Oximetry Medical Decision Making - Medical Decision Making Was pt. sent in by a medical professional or institution (, NLOAN, NUMERICAL CONTROL MACHINE TOOL OPERATOR, urgent care, hospital, or [facility]...) When possible be specific @ -No Did you speak to anyone other than the patient for history (EMS, parent, family, police, friend...)? What history was obtained from this source @ -No Did you review nursing and triage notes (agree or disagree)? Why? @ -I reviewed and agree with nursing and triage notes Were old charts reviewed (outside hosp., previous admission, EMS record, old EKG, old radiological studies, urgent care reports/EKG's, [facility] records)? Report findings @ -No old charts were reviewed Differential Diagnosis? @ -Differential Abdominal Pain Women: Appendicitis, Cholecystitis, diverticulosis, ischemic bowel, pancreatitis, hepatitis, UTI, gastroenteritis, AAA, incarcerated hernia, bowel obstruction, constipation, inflammatory bowel, hepatitis, peptic ulcer disease, splenic infarction, perforated viscus, vulvitis, ovarian torsion, PID, kidney stone, placenta abruption, this is not meant to be an all-inclusive list EKG interpreted by me (3pts min.). @ -As above X-rays interpreted by me (1pt min.). @ -X-ray shows no acute abnormality CT interpreted by me (1pt min.). @ -None done U/S interpreted by me (1pt. min.). @ -None done What testing was considered but not performed or refused? (CT, X-rays, U/S, labs)? Why? @ -None What meds were considered but not given or refused? Why? @ -None Did you discuss the management of the patient with other professionals (professionals i.e. , PA, NUMERICAL CONTROL MACHINE TOOL OPERATOR, lab, RT, psych nurse, perinatal social worker, rug frame mounter, teacher, electrical engineering drafting officer, correctional case manager)? Give summary @ -No Was smoking cessation discussed for >3mins.? @ -No Was critical care preformed (if so, how long)? @ -No Were there social determinants of health that impacted care today? How? (Homelessness, low income, unemployed, alcoholism, drug addiction, transportation, low edu. Level, literacy, decrease access to med. care, [facility], rehab)? @ -No Was there de-escalation of care discussed even if they declined (Discuss DNR or withdrawal of care, Hospice)? DNR status @ -No What co-morbidities impacted this encounter? (DM, HTN, Smoking, COPD, CAD, Cancer, CVA, ARF, Chemo, Hep., AIDS, mental health diagnosis, sleep apnea, morbid obesity)? @ -None Was patient admitted / discharged? Hospital course, mention meds given and route, prescriptions, significant lab abnormalities, going to OR and other pertinent info. @ -Patient was insistent she was constipated she did get an enema she states it was only minimal results. Patient is supposed to start taking a prep tomorrow for colonoscopy on Saturday so she will be discharged home to continue the prep and follow-up with Dr. Whaley. Patient also had a beta-hCG done which was negative. She is very preoccupied with the fact she thinks her cancer might be coming back so I spoke with oncology and they said they would be happy to see her to direct her to somebody who can follow her up. Undiagnosed new problem with uncertain prognosis? @ -No Drug Therapy requiring intensive monitoring for toxicity (Heparin, Nitro, Insulin, Cardizem)? @ -No Were any procedures done? @ -No Diagnosis/symptom? @ -Constipation Acute, or Chronic, or Acute on Chronic? @ -Acute Uncomplicated (without systemic symptoms) or Complicated (systemic symptoms)? @ -Uncomplicated Side effects of treatment? @ -No Exacerbation, Progression, or Severe Exacerbation? @ -No Poses a threat to life or bodily function? How? (Chest pain, [place], [place], pneumonia, PE, COPD, DKA, ARF, appy, cholecystitis, CVA, Diverticulitis, Homicidal, Suicidal, threat to staff... and all critical care pts) @ -No - Lab Data Lab Results 11/01/24 Range/Units 09:58 HCG, Quant <2.4 mIU/mL Disposition Clinical Impression: Constipation Disposition: HOME SELF-CARE Condition: Good Instructions (If sedation given, give patient instructions): Constipation (DC), High Fiber Diet (ED) Additional Instructions: Patient should follow-up with Dr. Whaley for the colonoscopy. Is patient prescribed a controlled substance at d/c from ED?: No Referrals: Elsy Quintero MD [STAFF PHYSICIAN] - 1-2 days Time of Disposition: 11:45
[2024-11-01 12:04] VITALS: BP 122/83; PULSE 92; RESP 20; TEMP 98.1
== END 2024-11-01 11:58 | disposition home or self-care (01) ==
LOC: SUPCPDRO 07:45 → EC 07:45
DX: K59.00 Constipation, unspecified (principal); Z87.891 Personal history of nicotine dependence
CPT/HCPCS: 36415; 74018; 84702; 99284

== ENCOUNTER 2024-11-03 11:28 | Day surgery (SDC) | payer OTHER ==
[2024-11-03 11:52] VITALS: TEMP 98.5
[2024-11-03] MEDS: IV FLUID CONTINUATION 1,000 ML IV ONE (11:55)
[2024-11-03] MEDS ORDERED: LIDOCAINE 1% INJ 10MG/ML (20 ML MDV) ONE (12:47)
[2024-11-03] MEDS ORDERED: PROPOFOL 10 MG/ML 20 ML VIAL IV ONE (12:47)
--- NOTE | 2024-11-03 13:10 | P.PCN ---
Date of Procedure: 11/03/24 Procedure(s) Performed: PREOPERATIVE DIAGNOSIS: Rectal bleeding, hemorrhoids POSTOPERATIVE DIAGNOSIS: Circumferential hemorrhoids, posterior anal fissure PROCEDURE: Colonoscopy with anoscopy ANESTHESIA: MAC SURGEON: Damir Whaley M.D. SPECIMENS: None ENDOSCOPIC PROCEDURE: The patient was placed on the endoscopy table in the left decubitus position. The Olympus colonoscope was inserted into the anus and passed under direct visualization to the base of the cecum. The appendiceal orifice was visualized. From that point the scope was slowly withdrawn inspecting all surfaces carefully. There were no neoplastic inflammatory or polypoid lesions throughout the cecum, ascending, transverse, descending, sigmoid and rectum. At the anal canal proximal to the dentate line there was a few small superficial mucosal tears present with a small amount of oozing. In the posterior midline there was noted to be a small anal fissure. Both of these areas were bleeding slightly. The patient had circumferential internal and external hemorrhoids noted. None of these appeared particularly inflamed. There was no evidence of thrombosis. The disposable anoscope was utilized also for evaluation of the anal canal region. The patient was taken to the recovery room in stable condition per anesthesia guidelines. RECOMMENDATIONS: Continue stool softeners. Will send prescription for diltiazem lidocaine cream. Follow-up if bleeding persist.
[2024-11-03 13:28] VITALS: RESP 18
[2024-11-03 13:45] VITALS: BP 106/74; PULSE 72
== END 2024-11-03 14:01 | disposition home or self-care (01) ==
LOC: ORWHC2ENDO 11:28
PROVIDERS: ATTEND Surgery
DX: K60.2 Anal fissure, unspecified (principal); K64.8 Other hemorrhoids; K64.4 Residual hemorrhoidal skin tags; J45.909 Unspecified asthma, uncomplicated; Z87.891 Personal history of nicotine dependence; Z85.79 Personal history of other malignant neoplasms of lymphoid, hematopoietic and related tissues
CPT/HCPCS: 81025; 45378; J2003; J2704